=== PATIENT | female | born 1945 | race Two or more races ===

== ENCOUNTER 2018-01-09 15:07 | Inpatient (IN) | payer OTHER ==
[~2018-01-09] VITALS: Ht 154.9 cm; Wt 73.6 kg
[2018-01-09 16:21] LABS: Basophils # (auto) 0.1 uL; Basophils % (auto) 0.3 % (0.0-2.0); Eosinophils # (auto) 0 uL; Hematocrit 30.7 % (36.0-46.0); Hemoglobin 9.6 g/dL (12.2-16.2); Mean Corpuscular Hemoglobin 25.3 pg (28.0-32.0); Neutrophils # (auto) 23.6 uL; Nucleated Red Blood Cells % 0.3 %
[2018-01-09 16:23] LABS: Lymphocytes % (auto) 3.9 % (10.0-50.0); Mean Corpuscular Hgb Conc. 31.2 g/dL (32.0-36.0); Mean Corpuscular Volume 81.3 fL (80.0-100.0); Monocytes # (auto) 1.4 uL; Monocytes % (auto) 5.2 % (0.0-12.0); Neutrophils % (auto) 90.6 % (37.0-80.0); Platelet Count (auto) 261 10^3/uL (140-450); Red Blood Cells 3.78 10^6/uL (4.0-5.20); Red Cell Distribution Width 16.9 % (11.8-14.3)
[2018-01-09 16:39] LABS: INR 1.21 (0.9-1.15); Partial Thromboplastin Time 26.9 sec (22.64-33.71); Prothrombin Time 13.2 sec (9.37-12.3)
[2018-01-09 16:54] LABS: Albumin 2.7 g/dL (3.4-5.0); BUN/Creatinine Ratio 10.5; Calcium 8.5 mg/dL (8.5-10.1); Magnesium 2.3 mg/dL (1.6-2.6); Potassium 4.1 mmol/L (3.5-5.1); Total Protein 6.8 g/dL (6.4-8.2)
[2018-01-09] MEDS ORDERED: cefTRIAXone 1GM/10ml IVPUSH 10 ML IV ONE (18:30)
[2018-01-09] MEDS ORDERED: VANCOMYCIN PER PHARMACY 0 MG IV SCH (19:00)
[2018-01-09] MEDS ORDERED: AZITHROMYCIN 500MG/ 250ML 250 ML IV ONE (19:00)
[2018-01-09] MEDS ORDERED: PIPERACILLIN-TAZOB 3.375GM 100 ML IV ONE (19:00)
[2018-01-09] MEDS ORDERED: VANCOMYCIN 1GM/250ML 250 ML IV ONE (19:00)
[2018-01-09] MEDS ORDERED: NITROGLYCERIN 0.4 MG SL TAB SL PRN (19:15)
[2018-01-09] MEDS ORDERED: DEXTROSE (50%) 50ML SYRG IV PRN (19:15)
[2018-01-09] MEDS ORDERED: MORPHINE SULFATE 4 MG/ML SYR/VIAL IV PRN ×3 (19:15)
[2018-01-09] MEDS ORDERED: PROMETHAZINE HCL 25 MG/ML 1ML IV PRN (19:15)
[2018-01-09] MEDS ORDERED: LORazepam 0.5 MG TAB PO PRN (19:15)
[2018-01-09] MEDS ORDERED: LACTULOSE 20Gm/30ML SOLN PO PRN (19:15)
[2018-01-09] MEDS ORDERED: ALBUTEROL SULF 2.5 MG/0.5ML(0.5%) NEB SOLN NEB PRN (19:15)
[2018-01-09] MEDS ORDERED: TEMAZEPAM 15 MG CAP PO PRN (19:15)
[2018-01-09 19:38] LABS: Lactic Acid w/Reflex 4.4 mmol/L (0.4-2.0)
[2018-01-09 19:42] LABS: Amylase 18 U/L (25-115); Lipase 102 U/L (73-393)
[2018-01-09 19:44] LABS: CRP High Sensitivity > 19.0 mg/dL (< 0.3)
[2018-01-09] MEDS: ENOXAPARIN SOD 80 MG/0.8ML SYRINGE SC SCH (20:10)
[2018-01-09] MEDS: NITROGLYCERIN 0.2MG/HR TOPICAL PATCH TD SCH (20:10)
[2018-01-09] MEDS: ACCU-CHEK COMFORT CURVE STRIP VI SCH (20:14)
[2018-01-09] MEDS: InsuLIN REG 1unit/0.01ml Soln (100units/ml) SC SCH (20:17)
[2018-01-09 21:03] VITALS: BP 129/58
[2018-01-09] MEDS: METOPROLOL TARTRATE 25 MG TAB PO SCH (22:50)
[2018-01-09] MEDS: ALBUTEROL SULF 2.5 MG/0.5ML(0.5%) NEB SOLN NEB SCH (23:42)
[2018-01-10] VITALS (39 sets, daily range): BP systolic 108–153; BP diastolic 37–88
[2018-01-10] MEDS: ACCU-CHEK COMFORT CURVE STRIP VI SCH ×6 (00:19→20:00)
[2018-01-10] MEDS: InsuLIN REG 1unit/0.01ml Soln (100units/ml) SC SCH ×6 (00:24→20:00)
[2018-01-10] MEDS: PIPERACILLIN-TAZOB 3.375GM 100 ML IV SCH ×5 (00:30→18:40)
[2018-01-10 04:16] LABS: Eosinophils # (auto) 0 uL; Eosinophils % (auto) 0.1 % (0.0-7.0); Lymphocytes # (auto) 1.1 uL; Monocytes # (auto) 1.2 uL; Red Blood Cells 3.34 10^6/uL (4.0-5.20)
[2018-01-10 04:18] LABS: Basophils # (auto) 0.1 uL; Basophils % (auto) 0.2 % (0.0-2.0); Hematocrit 26.4 % (36.0-46.0); Hemoglobin 8.5 g/dL (12.2-16.2); Lymphocytes % (auto) 4.9 % (10.0-50.0); Mean Corpuscular Hemoglobin 25.6 pg (28.0-32.0); Mean Corpuscular Hgb Conc. 32.4 g/dL (32.0-36.0); Mean Corpuscular Volume 79.1 fL (80.0-100.0); Monocytes % (auto) 5.3 % (0.0-12.0); Neutrophils # (auto) 19.6 uL; Neutrophils % (auto) 89.5 % (37.0-80.0); Platelet Count (auto) 220 10^3/uL (140-450); Red Cell Distribution Width 16.8 % (11.8-14.3)
[2018-01-10 04:29] LABS: Albumin 2.4 g/dL (3.4-5.0); Calcium 8.3 mg/dL (8.5-10.1); Potassium 3.8 mmol/L (3.5-5.1)
[2018-01-10 04:32] LABS: BUN/Creatinine Ratio 16.2; Total Protein 6.2 g/dL (6.4-8.2)
[2018-01-10 04:47] LABS: Bilirubin, Total 0.9 mg/dL (0.2-1.0)
[2018-01-10] MEDS: ALBUTEROL SULF 2.5 MG/0.5ML(0.5%) NEB SOLN NEB SCH ×3 (05:48→19:20)
[2018-01-10] MEDS: ENOXAPARIN SOD 80 MG/0.8ML SYRINGE SC SCH ×2 (06:52→19:47)
[2018-01-10] MEDS ORDERED: AZITHROMYCIN 500MG/ 250ML 250 ML IV SCH (10:00)
[2018-01-10] MEDS: ASPirin 81 mg TAB PO SCH (10:04)
[2018-01-10] MEDS: METOPROLOL TARTRATE 25 MG TAB PO SCH ×2 (10:04→22:00)
[2018-01-10] MEDS: PANTOPRAZOLE 40 MG/10 ML VIAL IV SCH (10:24)
[2018-01-10] MEDS ORDERED: VANCOMYCIN 1GM/250ML 250 ML IV SCH (14:00)
[2018-01-10] MEDS: Boost Glucose Control 8 Ounces PO SCH (18:40)
[2018-01-10] MEDS: NITROGLYCERIN 0.2MG/HR TOPICAL PATCH TD SCH (19:47)
[2018-01-11] VITALS (27 sets, daily range): BP systolic 86–153; BP diastolic 46–72
[2018-01-11] MEDS: ACCU-CHEK COMFORT CURVE STRIP VI SCH ×7 (00:10→23:56)
[2018-01-11] MEDS: InsuLIN REG 1unit/0.01ml Soln (100units/ml) SC SCH ×6 (00:10→20:07)
[2018-01-11] MEDS: ALBUTEROL SULF 2.5 MG/0.5ML(0.5%) NEB SOLN NEB SCH ×4 (00:23→19:04)
[2018-01-11] MEDS: PIPERACILLIN-TAZOB 3.375GM 100 ML IV SCH ×5 (00:24→23:55)
[2018-01-11 04:13] LABS: Eosinophils # (auto) 0 uL; Hematocrit 24.3 % (36.0-46.0); Lymphocytes # (auto) 1.2 uL
[2018-01-11 04:16] LABS: Basophils # (auto) 0 uL; Basophils % (auto) 0.2 % (0.0-2.0); Hemoglobin 7.7 g/dL (12.2-16.2); Lymphocytes % (auto) 5.2 % (10.0-50.0); Mean Corpuscular Hemoglobin 25.8 pg (28.0-32.0); Mean Corpuscular Hgb Conc. 31.8 g/dL (32.0-36.0); Mean Corpuscular Volume 80.9 fL (80.0-100.0); Monocytes # (auto) 1.3 uL; Monocytes % (auto) 5.6 % (0.0-12.0); Neutrophils # (auto) 20.3 uL; Nucleated Red Blood Cells % 0.1 %; Platelet Count (auto) 217 10^3/uL (140-450); Red Cell Distribution Width 16.9 % (11.8-14.3); White Blood Cell 22.7 10^3/uL (4.4-10.8)
[2018-01-11 04:35] LABS: Albumin 2.1 g/dL (3.4-5.0); Calcium 7.9 mg/dL (8.5-10.1); Potassium 3.4 mmol/L (3.5-5.1)
[2018-01-11 04:37] LABS: BUN/Creatinine Ratio 26.9
[2018-01-11 04:53] LABS: Bilirubin, Total 0.8 mg/dL (0.2-1.0); Total Protein 5.9 g/dL (6.4-8.2)
[2018-01-11] MEDS: ENOXAPARIN SOD 80 MG/0.8ML SYRINGE SC SCH ×2 (07:56→18:48)
[2018-01-11] MEDS: Boost Glucose Control 8 Ounces PO SCH ×3 (08:27→18:31)
[2018-01-11] MEDS ORDERED: FAM20T PO (09:50)
[2018-01-11] MEDS ORDERED: HYDR-4683 PO (09:55)
[2018-01-11] MEDS ORDERED: ONDA8TAB6 PO (09:55)
[2018-01-11] MEDS ORDERED: DABI75CA3 PO (09:55)
[2018-01-11] MEDS ORDERED: TRAM50TA2 PO (09:55)
[2018-01-11] MEDS ORDERED: DIPH1TAB30 PO (09:55)
[2018-01-11] MEDS ORDERED: HYDR25TA35 PO (09:55)
[2018-01-11] MEDS ORDERED: INSUINJ2 SC ×2 (09:55)
[2018-01-11] MEDS: PANTOPRAZOLE 40 MG/10 ML VIAL IV SCH (10:00)
[2018-01-11] MEDS: METOPROLOL TARTRATE 25 MG TAB PO SCH ×2 (10:01→21:40)
[2018-01-11] MEDS: ASPirin 81 mg TAB PO SCH (10:01)
[2018-01-11] MEDS ORDERED: POTASSIUM CHL 10% (20 MEQ/15ML) 15ml ORAL SOLN PO ONE (11:30)
[2018-01-11 16:21] LABS: INR 1.13 (0.9-1.15); Partial Thromboplastin Time 29.6 sec (22.64-33.71); Prothrombin Time 12.3 sec (9.37-12.3)
[2018-01-11] MEDS ORDERED: WARFARIN SODIUM 5 MG TAB PO ONE (17:00)
[2018-01-11] MEDS: NITROGLYCERIN 0.2MG/HR TOPICAL PATCH TD SCH (17:51)
[2018-01-11] MEDS ORDERED: ACETAMINOPHEN 325 MG TAB PO PRN (22:45)
[2018-01-12] MEDS: ALBUTEROL SULF 2.5 MG/0.5ML(0.5%) NEB SOLN NEB SCH ×3 (00:43→13:01)
[2018-01-12] MEDS: ACCU-CHEK COMFORT CURVE STRIP VI SCH ×4 (03:39→16:00)
[2018-01-12] MEDS: InsuLIN REG 1unit/0.01ml Soln (100units/ml) SC SCH ×5 (03:41→16:00)
[2018-01-12 05:00] VITALS: BP 133/44
[2018-01-12] MEDS: PIPERACILLIN-TAZOB 3.375GM 100 ML IV SCH ×3 (05:29→18:00)
[2018-01-12] MEDS: ENOXAPARIN SOD 80 MG/0.8ML SYRINGE SC SCH (06:17)
[2018-01-12 06:56] LABS: Basophils # (auto) 0 uL; Basophils % (auto) 0.1 % (0.0-2.0); Eosinophils # (auto) 0 uL; Monocytes # (auto) 1.2 uL; Nucleated Red Blood Cells % 0.1 %
[2018-01-12 06:59] LABS: Hematocrit 24.7 % (36.0-46.0); Lymphocytes # (auto) 0.7 uL; Lymphocytes % (auto) 3.2 % (10.0-50.0); Mean Corpuscular Hgb Conc. 32.4 g/dL (32.0-36.0); Mean Corpuscular Volume 80.3 fL (80.0-100.0); Monocytes % (auto) 5.2 % (0.0-12.0); Neutrophils # (auto) 20.6 uL; Neutrophils % (auto) 91.5 % (37.0-80.0); Platelet Count (auto) 214 10^3/uL (140-450); Red Blood Cells 3.07 10^6/uL (4.0-5.20); Red Cell Distribution Width 16.9 % (11.8-14.3); White Blood Cell 22.5 10^3/uL (4.4-10.8)
[2018-01-12 07:05] LABS: INR 1.14 (0.9-1.15); Prothrombin Time 12.4 sec (9.37-12.3)
[2018-01-12 07:11] LABS: BUN/Creatinine Ratio 31.7; Calcium 7.7 mg/dL (8.5-10.1); Potassium 3.6 mmol/L (3.5-5.1)
[2018-01-12] MEDS: Boost Glucose Control 8 Ounces PO SCH ×2 (08:00→12:00)
[2018-01-12 08:30] VITALS: BP 143/73
[2018-01-12] MEDS: ASPirin 81 mg TAB PO SCH (09:14)
[2018-01-12] MEDS: PANTOPRAZOLE 40 MG/10 ML VIAL IV SCH (09:15)
[2018-01-12] MEDS: METOPROLOL TARTRATE 25 MG TAB PO SCH (09:15)
[2018-01-12] MEDS ORDERED: FUROSEMIDE 40 MG/4 ML VIAL IV ONE (11:30)
[2018-01-12] MEDS ORDERED: POTASSIUM CHL 20 Meq TABLET PO ONE (11:30)
[2018-01-12 12:30] VITALS: BP 90/51
[2018-01-12 16:22] VITALS: BP 123/63
[2018-01-12] MEDS ORDERED: WARFARIN SODIUM 5 MG TAB PO ONE (17:00)
[2018-01-12 17:18] VITALS: BP 123/43
== END 2018-01-12 17:58 | disposition hospice, home (50) | DRG 280 ==
LOC: ER 15:19 → TELE 15:20 → TELE-WESTW 01-10 01:16 → ICU WEST 01-10 01:19 → TELE-WESTW 01-11 12:30
PROVIDERS: ADMIT Internal Medicine; ATTEND Internal Medicine
PROC: 30233N1 Transfusion of Nonautologous Red Blood Cells into Peripheral Vein, Percutaneous Approach (ICD-10-PCS; principal; 2018-01-11)
DX: I21.19 ST elevation (STEMI) myocardial infarction involving other coronary artery of inferior wall (principal); J18.9 Pneumonia, unspecified organism; G93.41 Metabolic encephalopathy; I50.43 Acute on chronic combined systolic (congestive) and diastolic (congestive) heart failure; E44.0 Moderate protein-calorie malnutrition; C78.7 Secondary malignant neoplasm of liver and intrahepatic bile duct; E87.1 Hypo-osmolality and hyponatremia; E11.65 Type 2 diabetes mellitus with hyperglycemia; R65.10 Systemic inflammatory response syndrome (SIRS) of non-infectious origin without acute organ dysfunction; I11.0 Hypertensive heart disease with heart failure; D64.9 Anemia, unspecified; D32.0 Benign neoplasm of cerebral meninges; F17.200 Nicotine dependence, unspecified, uncomplicated; Z51.5 Encounter for palliative care; Z66 Do not resuscitate; Z83.3 Family history of diabetes mellitus; Z85.07 Personal history of malignant neoplasm of pancreas; Z86.711 Personal history of pulmonary embolism; Z86.718 Personal history of other venous thrombosis and embolism; Z90.710 Acquired absence of both cervix and uterus; Z88.8 Allergy status to other drugs, medicaments and biological substances; Z68.30 Body mass index [BMI] 30.0-30.9, adult
CPT/HCPCS: 36415; 36600; 70450; 71045; 74176; 80048; 80053; 82140; 82150; 82550; 82805; 82962; 83036; 83605; 83690; 83735; 83880; 84443; 84484; 85025; 85610; 85730; 86141; 86850; 86900; 86901; 86920; 87040; 87081; 93005; 93306; 94640; 96374; 96375; 99291; C9113; J1815; J2543